=== PATIENT | female | born 1980 | race Caucasian/White ===

== ENCOUNTER 2017-02-27 08:59 | Emergency (ER) | payer MEDICAID ==
[~2017-02-27] VITALS: Ht 170.2 cm; Wt 90.0 kg
[~2017-02-27 08:59] MED LIST: FERR27TA; PREN1TAB49
[2017-02-27 09:02] VITALS: Ht 170.2 cm; Wt 90.0 kg
[2017-02-27] MEDS ORDERED: SOD CHLORIDE 0.9% 1,000 ML IV STA (09:52)
[2017-02-27 10:11] LABS: BASOPHILS % 0.5 % (0.0-2.0); EOSINOPHILS # 0.1 10^3/ul (0.0-0.5); EOSINOPHILS % 1.5 % (0.0-7.0); HEMATOCRIT 40.4 % (37.0-47.0); HEMOGLOBIN 13.2 g/dl (12.0-16.0); LYMPHOCYTES # 1.7 10^3/ul (0.8-2.9); LYMPHOCYTES % 31.2 % (15.0-51.0); MEAN CORPUSCULAR HEMOGLOBIN 29.3 pg (29.0-33.0); MEAN CORPUSCULAR HGB CONC 32.7 g/dl (32.0-37.0); MEAN CORPUSCULAR VOLUME 89.8 fl (82.0-101.0); MEAN PLATELET VOLUME 11.8 fl (7.4-10.4); MONOCYTE # 0.4 10^3/ul (0.3-0.9); MONOCYTES % 6.6 % (0.0-11.0); NEUTROPHIL # 3.3 10^3/ul (1.6-7.5); NEUTROPHILS % 59.3 % (39.0-77.0); PLATELET COUNT 330 10^3/UL (140-415); RED CELL DISTRIBUTION WIDTH 12.3 % (11.5-14.5); WHITE BLOOD COUNT 5.5 10^3/ul (4.8-10.8)
[2017-02-27 10:37] LABS: ALBUMIN 4.6 g/dl (3.3-4.9); ALBUMIN/GLOBULIN RATIO 1.7; BILIRUBIN,INDIRECT 0.3 mg/dl (0-1.1); BILIRUBIN,TOTAL 0.3 mg/dl (0.2-1.3); CALCIUM 10.1 mg/dl (8.4-10.2); CREATININE 0.69 mg/dl (0.44-1.00); POTASSIUM 4.4 mmol/L (3.5-5.1); TOTAL PROTEIN 7.3 g/dl (6.1-8.1)
[2017-02-27] MEDS ORDERED: IBUP-1542 PO (10:54)
--- NOTE | 2017-02-27 10:56 | ERD ---
ER Documentation Chief Complaint Date/Time DATE: 02/27/17 TIME: 10:55 Chief Complaint left facial numbness, blurred vision x 5 days, left eye twitchingx 2 wk HPI Patient is a 36-year-old female with no medical problems who presents with face twitching. The patient says that for 2 weeks she has had twitching the left eye. She says that she has noticed numbness to the left face over the past 5 days. She has left eye pain and left-sided facial pain. She feels blurry vision in her left eye. She said that she tried tea and a "pain med". Upon review of old medical records this is the patient's third visit to the ER since 2009. She does not currently have a primary doctor. ROS All systems reviewed and are negative except as per history of present illness. Medications Home Meds Active Scripts Ibuprofen* (Motrin*) 600 Mg Tab, 600 MG PO Q6H Y for PAIN AND OR ELEVATED TEMP, #30 TAB Prov:CHETAN ANDREWS MD 02/27/17 Reported Medications Vits W-Ca,Fe,Fa(<1MG) () 1 Tab Tablet 04/26/10 Ferrous Sulfate (Iron) 1 Tab Tablet 04/26/10 Allergies Allergies: Coded Allergies: No Known Drug Allergy (Verified Allergy, Unknown, 03/07/10) PMhx/Soc Medical and Surgical Hx: pt denies Medical Hx, pt denies Surgical Hx Hx Alcohol Use: Yes (SOCIAL) Hx Substance Use: No Hx Tobacco Use: No Smoking Status: Never smoker FmHx Family History: diabetes Physical Exam Vitals Vital Signs Date Time Temp Pulse Resp B/P Pulse Ox O2 Delivery O2 Flow Rate FiO2 02/27/17 11:02 98.3 76 18 122/87 99 Room Air 02/27/17 09:50 92 18 126/91 99 Room Air 02/27/17 09:02 98.1 85 18 143/90 100 Physical Exam Const: No acute distress Head: Atraumatic Eyes: Normal Conjunctiva, mild twitching of the left eye ENT: Normal External Ears, Nose and Mouth. Neck: Full range of motion..~ No meningismus. Resp: Clear to auscultation bilaterally Cardio: Regular rate and rhythm, no murmurs Abd: Soft, non tender, non distended. Normal bowel sounds Skin: No petechiae or rashes Back: No midline or flank tenderness Ext: No cyanosis, or edema Neur: Awake and alert Psych: Normal Mood and Affect Result Diagram: 02/27/1795102/27/17951 Results 24 hrs Laboratory Tests Test 02/27/17 09:32 02/27/17 09:52 Bedside Glucose 114mg/dL White Blood Count 5.510^3/ul Red Blood Count 4.5010^6/ul Hemoglobin 13.2g/dl Hematocrit 40.4% Mean Corpuscular Volume 89.8fl Mean Corpuscular Hemoglobin 29.3pg Mean Corpuscular Hemoglobin Concent 32.7g/dl Red Cell Distribution Width 12.3% Platelet Count 88507^3/UL Mean Platelet Volume 11.8fl Neutrophils % 59.3% Lymphocytes % 31.2% Monocytes % 6.6% Eosinophils % 1.5% Basophils % 0.5% Nucleated Red Blood Cells % 0.0/100WBC Neutrophils # 3.310^3/ul Lymphocytes # 1.710^3/ul Monocytes # 0.410^3/ul Eosinophils # 0.110^3/ul Basophils # 0.010^3/ul Nucleated Red Blood Cells # 0.010^3/ul Sodium Level 140mmol/L Potassium Level 4.4mmol/L Chloride Level 103mmol/L Carbon Dioxide Level 29mmol/L Anion Gap 12 Blood Urea Nitrogen 13mg/dl Creatinine 0.69mg/dl Glucose Level 96mg/dl Calcium Level 10.1mg/dl Ionized Calcium (Measured) 1.2mmol/L Total Bilirubin 0.3mg/dl Direct Bilirubin 0.00mg/dl Indirect Bilirubin 0.3mg/dl Aspartate Amino Transf (AST/SGOT) 33IU/L Alanine Aminotransferase (ALT/SGPT) 56IU/L Alkaline Phosphatase 62IU/L Total Protein 7.3g/dl Albumin 4.6g/dl Globulin 2.70g/dl Albumin/Globulin Ratio 1.70 Lipase 101U/L Current Medications Medications (Trade) Dose Ordered Sig/Tia Route PRN Reason Start Time Stop Time Status Last Admin Dose Admin Sodium Chloride (NS) 1,000 ml @ 1,000 mls/hr Q1H STAT IV 02/27/17 09:52 02/27/17 10:51 DC 02/27/17 10:04 Procedures/MDM EKG read by me: Rate/Rhythm: Regular rate and rhythm at a rate of 76 Intervals: Normal Impression: No evidence of ischemia or arrhythmia Patient is a 36-year-old female with no medical problems who presents with left- sided facial pain and eye twitching. The patient has normal laboratory studies including normal sodium, potassium, and calcium. I doubt serious electrolyte abnormality. I doubt stroke. I doubt other serious etiology at this time. This may be related to facial muscle irritation or other local nerve palsy. The patient will be discharged home with prescription for ibuprofen. She will need to follow-up closely with a primary doctor within 24-48 hours. She can return sooner for any worsening symptoms. Departure Diagnosis: Primary Impression: Facial twitching Additional Impression: Numbness Condition: Fair Patient Instructions: Numbness, Paraesthesias Additional Instructions: Call your primary care doctor TOMORROW for an appointment during the next 1-2 days.See the doctor sooner or return here if your condition worsens before your appointment time. CHETAN ANDREWS MD Feb 27, 2017 10:56
[2017-02-27 11:02] VITALS: BP 122/87; PULSE 76; RESP 18; TEMP 98.3
== END 2017-02-27 11:06 | disposition home or self-care (01) ==
LOC: E/R 08:59
DX: R25.3 Fasciculation (principal); R40.2142 Coma scale, eyes open, spontaneous, at arrival to emergency department; R40.2252 Coma scale, best verbal response, oriented, at arrival to emergency department; R40.2362 Coma scale, best motor response, obeys commands, at arrival to emergency department; R00.2 Palpitations
CPT/HCPCS: 36415; 80053; 82330; 82962; 83690; 85025; 93005; 96360; J7030; Z7502; Z7610